=== PATIENT | male | born 1980 | race Caucasian/White ===

== ENCOUNTER 2022-09-19 18:44 | Emergency (ER) | payer OTHER ==
[~2022-09-19] VITALS: Ht 170.2 cm; Wt 102.0 kg
[2022-09-19 19:25] VITALS: BP 144/93
[2022-09-19] MEDS ORDERED: KETOROLAC 60MG/2ML VIAL IM STA (22:41)
[2022-09-19 23:14] LABS: BASOPHILS % 0.8 % (0.0-2.0); EOSINOPHILS % 1.5 % (0.0-5.0); HEMOGLOBIN. 15.4 g/dL (14.0-18.0); LYMPHOCYTES % 15.4 % (20.0-50.0); MEAN CORPUSCULAR HEMOGLOBIN 32.5 pg (28.0-32.0); MEAN CORPUSCULAR VOLUME 92.7 fL (80.0-94.0); MEAN PLATELET VOLUME 8.5 fl (7.4-10.4); MONOCYTES % 9.2 % (2.0-8.0); NEUTROPHILS % 73.1 % (40.0-76.0); PLATELET 160 x1000/uL (130-400); RED BLOOD CELL COUNT 4.75 mill/uL (4.7-6.1); RED CELL DISTRIBUTION WIDTH 13.3 % (11.6-14.6)
[2022-09-19 23:23] LABS: CHLORIDE 106 mEq/L (98-107)
[2022-09-19 23:29] LABS: ETHANOL BLOOD < 10 mg/dL
[2022-09-20 03:57] LABS: CLARITY URINE CLEAR (CLEAR); COLOR URINE DARK YELLOW (YELLOW); KETONES URINE NEGATIVE (NEGATIVE); LEUKOCYTE ESTERASE URINE NEGATIVE (NEGATIVE); NITRITE URINE NEGATIVE (NEGATIVE); OCCULT BLOOD URINE NEGATIVE (NEGATIVE); PH URINE 5.5 (4.5-8.0); PROTEIN URINE TRACE (NEGATIVE); SPECIFIC GRAVITY URINE 1.021 (1.005-1.030)
[2022-09-20] MEDS ORDERED: METHYLPREDNISOLONE SOD SUCC 125 MG/2 ML VIAL IM NR (04:35)
[2022-09-20] MEDS ORDERED: NAPR-681 PO (04:52)
== END 2022-09-20 05:09 | disposition home or self-care (01) ==
LOC: EDBD 19:57 → ER 19:57
DX: M79.671 Pain in right foot (principal); R74.02 Elevation of levels of lactic acid dehydrogenase [LDH]; K76.0 Fatty (change of) liver, not elsewhere classified
CPT/HCPCS: 36415; 73562; 76705; 80053; 80320; 81003; 83690; 85025; 96372; 99285; J1885; J2930; G0480

== ENCOUNTER 2023-02-26 09:09 | Emergency (ER) | payer OTHER ==
[~2023-02-26] VITALS: Ht 172.7 cm; Wt 100.0 kg
[~2023-02-26 09:09] MED LIST: NAPR-681 PO
[2023-02-26 09:15] VITALS: BP 144/91
[2023-02-26] MEDS ORDERED: KETOROLAC 60MG/2ML VIAL IM ONE (11:30)
[2023-02-26 12:01] LABS: BASOPHILS % 0.8 % (0.0-2.0); EOSINOPHILS % 1.6 % (0.0-5.0); HEMATOCRIT. 44.4 % (42.0-52.0); HEMOGLOBIN. 15.7 g/dL (14.0-18.0); LYMPHOCYTES % 19.7 % (20.0-50.0); MEAN CORPUSCULAR HEMOGLOBIN 32.4 pg (28.0-32.0); MEAN CORPUSCULAR VOLUME 92.1 fL (80.0-94.0); MEAN PLATELET VOLUME 8.7 fl (7.4-10.4); MONOCYTES % 12.3 % (2.0-8.0); NEUTROPHILS % 65.6 % (40.0-76.0); PLATELET 181 x1000/uL (130-400); RED BLOOD CELL COUNT 4.83 mill/uL (4.7-6.1); RED CELL DISTRIBUTION WIDTH 13.1 % (11.6-14.6)
[2023-02-26 12:16] LABS: CLARITY URINE CLEAR (CLEAR); COLOR URINE YELLOW (YELLOW); KETONES URINE NEGATIVE (NEGATIVE); LEUKOCYTE ESTERASE URINE NEGATIVE (NEGATIVE); NITRITE URINE NEGATIVE (NEGATIVE); OCCULT BLOOD URINE NEGATIVE (NEGATIVE); PROTEIN URINE NEGATIVE (NEGATIVE); SPECIFIC GRAVITY URINE 1.013 (1.005-1.030); UROBILINOGEN URINE 0.2 E.U./dL (0.2-1.0)
[2023-02-26 12:30] LABS: CHLORIDE 109 mEq/L (98-107)
[2023-02-26] MEDS ORDERED: MORPHINE SULFATE 4 MG/ML CPJ (NOT FOR IM USE) IV NR (13:00)
[2023-02-26] MEDS ORDERED: SODIUM CHLORIDE 0.9% 1,000 ML IV ONE (13:00)
[2023-02-26] MEDS ORDERED: NAPR-681 MT (15:47)
== END 2023-02-26 15:44 | disposition home or self-care (01) ==
LOC: ER 09:09
DX: M54.9 Dorsalgia, unspecified (principal); R30.0 Dysuria
CPT/HCPCS: 36415; 74176; 80053; 81003; 85025; 96360; 96372; 99285; J1885; J2270

== ENCOUNTER 2023-02-28 10:57 | Emergency (ER) | payer OTHER ==
[~2023-02-28] VITALS: Ht 167.6 cm; Wt 82.0 kg
[~2023-02-28 10:57] MED LIST changes: +NAPR-681 MT
[2023-02-28] MEDS ORDERED: KETOROLAC 30MG/ML VIAL IM ONE (11:15)
[2023-02-28] MEDS ORDERED: METHOCARBAMOL 500MG TABLET PO ONE (11:15)
[2023-02-28 12:03] LABS: CLARITY URINE CLEAR (CLEAR); COLOR URINE YELLOW (YELLOW); KETONES URINE NEGATIVE (NEGATIVE); LEUKOCYTE ESTERASE URINE NEGATIVE (NEGATIVE); NITRITE URINE NEGATIVE (NEGATIVE); OCCULT BLOOD URINE NEGATIVE (NEGATIVE); PH URINE 6.5 (4.5-8.0); PROTEIN URINE NEGATIVE (NEGATIVE); SPECIFIC GRAVITY URINE 1.016 (1.005-1.030)
[2023-02-28 12:11] VITALS: BP 144/87
[2023-02-28] MEDS ORDERED: IBUP-2028 MT (12:26)
[2023-02-28] MEDS ORDERED: METH-653 MT (12:26)
== END 2023-02-28 12:43 | disposition home or self-care (01) ==
LOC: ER 10:57
DX: M54.50 Low back pain, unspecified (principal)
CPT/HCPCS: 81003; 96372; 99283; J1885